=== PATIENT | female | born 1955 | race Caucasian/White ===

== ENCOUNTER 2025-04-27 11:27 | Emergency (ER) | payer OTHER ==
[2025-04-27] MEDS ORDERED: Bacitracin 1 PK ONE (12:09)
[2025-04-27] MEDS ORDERED: Lidocaine 1% (PF) 30 ML VIAL ONE (12:31)
== END 2025-04-27 13:05 | disposition home or self-care (01) ==
LOC: MADERS 11:27
DX: S80.01XA Contusion of right knee, initial encounter (principal); M70.41 Prepatellar bursitis, right knee; I48.91 Unspecified atrial fibrillation; Z79.01 Long term (current) use of anticoagulants; W18.30XA Fall on same level, unspecified, initial encounter
CPT/HCPCS: 20610